=== PATIENT | female | born 1985 | race Two or more races ===

== ENCOUNTER 2019-03-23 15:11 | Emergency (ER) | payer MEDICAID, OTHER ==
[~2019-03-23] VITALS: Ht 157.5 cm; Wt 63.5 kg
[2019-03-23 15:47] VITALS: BP 117/72
== END 2019-03-23 17:09 | disposition home or self-care (01) ==
LOC: ER 15:21
DX: S61.211A Laceration without foreign body of left index finger without damage to nail, initial encounter (principal); W26.8XXA Contact with other sharp object(s), not elsewhere classified, initial encounter; Y93.89 Activity, other specified; Y92.89 Other specified places as the place of occurrence of the external cause; Y99.8 Other external cause status
CPT/HCPCS: 12001